=== PATIENT | female | born 1945 | race Caucasian/White ===

== ENCOUNTER 2016-12-29 09:21 | Emergency (ER) | payer MEDICARE, OTHER ==
--- NOTE | 2016-12-29 10:06 | ED ---
Influenza-Like Illness - HPI Summary HPI Summary: Patient presents with one week of cough, congestion and intermittent subjective fevers. She has a history of pneumonia and worries this cold is turning into pneumonia as well. She denies body aches, DANIELS, sore throat, neck pain, ear ache, CP or SOB. Her appetite is intact but she is consuming less. No N/V/D. - History of Current Complaint Hx Obtained From: Patient Onset/Duration: Gradual Onset Severity: Moderate Associated Signs & Symptoms: Cough, Nasal Congestion Related Hx: Possible Flu/Infectious Exposure <Koko Patel - Last Filed: 12/29/16 09:57> <Mathieu West - Last Filed: 12/29/16 11:05> - History of Current Complaint Chief Complaint: EDUpperRespComplaint Time Seen by Provider: 12/29/16 09:33 - Allergy/Home Medications Allergies/Adverse Reactions: Allergies Allergy/AdvReac Type Severity Reaction Status Date / Time Sulfa Antibiotics Allergy Rash Verified 12/29/16 09:31 PMH/Surg Hx/FS Hx/Imm Hx Endocrine/Hematology History: Reports: Hx Diabetes - diet controlled, Hx Thyroid Disease - HYPO Cardiovascular History: Reports: Hx Hypercholesterolemia, Hx Hypertension - ON MEDS Denies: Hx Pacemaker/ICD GI History: Reports: Other GI Disorders - see above Musculoskeletal History: Reports: Hx Arthritis, Hx Rheumatoid Arthritis, Hx Back Problems, Other Musculoskeletal History - ra Denies: Hx Osteoporosis Sensory History: Reports: Hx Contacts or Glasses - GLASSES Denies: Hx Hearing Aid Opthamlomology History: Reports: Hx Contacts or Glasses - GLASSES Neurological History: Reports: Other Neuro Impairments/Disorders - H/O SPONDYLOLITHESIS, LUMBAR STENOSIS, DDD. Psychiatric History: Denies: Hx Panic Disorder - Cancer History Hx Chemotherapy: No Hx Radiation Therapy: No - Surgical History Surgery Procedure, Year, and Place: 2012 DISCECTOMY IN , HERNIA REPAIR 2005, LAPARSCOPIC SURGERY 1981; BILATERAL CATARACTS Hx Anesthesia Reactions: No Infectious Disease History: No Infectious Disease History: Denies: Traveled Outside the [place] in Last 30 Days - Family History Known Family History: Positive: Hypertension - Social History Occupation: Retired Lives: With Family Alcohol Use: None Hx Substance Use: No Substance Use Type: Reports: None Hx Tobacco Use: No Smoking Status (MU): Never Smoked Tobacco Have You Smoked in the Last Year: No <Koko Patel - Last Filed: 12/29/16 09:57> Review of Systems Positive: Fever - subjective, Chills Positive: Nasal Discharge. Negative: Sore Throat, Ear Ache Negative: Chest Pain Positive: Cough. Negative: Shortness Of Breath Negative: Abdominal Pain, Vomiting, Diarrhea, Nausea Negative: Myalgia Negative: Headache All Other Systems Reviewed And Are Negative: Yes <Koko Patel - Last Filed: 12/29/16 09:57> Physical Exam Triage Information Reviewed: Yes Vital Signs On Initial Exam: Initial Vitals Temp Pulse Resp BP Pulse Ox 97.7 F 90 15 157/66 97 12/29/16 09:27 12/29/16 09:27 12/29/16 09:27 12/29/16 09:27 12/29/16 09:27 Vital Signs Reviewed: Yes Appearance: Positive: Well-Appearing, No Pain Distress, Well-Nourished Skin: Positive: Warm, Skin Color Reflects Adequate Perfusion, Dry, Soft Head/Face: Positive: Normal Head/Face Inspection Eyes: Positive: EOMI, ZANDER, Conjunctiva Clear ENT: Positive: Hearing grossly normal, Pharynx normal, Nasal congestion, TMs normal. Negative: Pharyngeal erythema, Tonsillar swelling, Tonsillar exudate Neck: Positive: Supple, Nontender, No Lymphadenopathy Respiratory/Lung Sounds: Positive: Clear to Auscultation, Breath Sounds Present Cardiovascular: Positive: RRR Abdomen Description: Positive: Nontender, Soft. Negative: CVA Tenderness (R), CVA Tenderness (L), Distended, Guarding Bowel Sounds: Positive: Present Musculoskeletal: Negative: Edema Left, Edema Right Neurological: Positive: Sensory/Motor Intact, Alert, Oriented to Person Place, Time, NV Bundle Intact Distally Psychiatric: Positive: Affect/Mood Appropriate AVPU Assessment: Alert - [place] Coma Scale Coma Scale Total: 15 <Koko Patel - Last Filed: 12/29/16 09:57> Vital Signs On Initial Exam: Initial Vitals Temp Pulse Resp BP Pulse Ox 97.7 F 90 15 157/66 97 12/29/16 09:27 12/29/16 09:27 12/29/16 09:27 12/29/16 09:27 12/29/16 09:27 <Mathieu West - Last Filed: 12/29/16 11:05> Diagnostics - Vital Signs Vital Signs Temp Pulse Resp BP Pulse Ox 12/29/16 09:40 98.0 F 90 18 169/77 98 12/29/16 09:39 92 96 12/29/16 09:37 169/77 12/29/16 09:27 97.7 F 90 15 157/66 97 - Radiology No standard instances Xray Interpretation: No Acute Changes Radiology Interpretation Completed By: Radiologist <Koko Patel - Last Filed: 12/29/16 09:57> - Vital Signs Vital Signs Temp Pulse Resp BP Pulse Ox 12/29/16 10:52 98.2 F 80 12 136/70 12/29/16 10:30 81 12 136/70 95 12/29/16 10:22 94 28 157/73 96 12/29/16 10:00 82 13 147/61 94 12/29/16 09:40 98.0 F 90 18 169/77 98 12/29/16 09:39 92 96 12/29/16 09:37 169/77 12/29/16 09:27 97.7 F 90 15 157/66 97 <Mathieu West - Last Filed: 12/29/16 11:05> Flu Symptom Course/Dx - Diagnoses Differential Diagnosis/HQI/PQRI: Positive: Bronchitis, Influenza, Pneumonia, RSV , Upper Respiratory Infection <Koko Patel - Last Filed: 12/29/16 09:57> <Mathieu West - Last Filed: 12/29/16 11:05> - Diagnoses Provider Diagnoses: URI (upper respiratory infection) Discharge <Koko Patel - Last Filed: 12/29/16 09:57> <Mathieu West - Last Filed: 12/29/16 11:05> - Discharge Plan Condition: Stable Disposition: HOME Patient Education Materials: Upper Respiratory Infection (ED) Referrals: Duncan Bridges MD [Primary Care Provider] - Additional Instructions: Please continue to treat your symptoms with over the counter medication. Get plenty of rest and consume extra fluids. Follow-up with your primary care provider for evaluation if your symptoms persist for another 5-7 days. Return to the emergency department if your symptoms worsen.
--- NOTE | 2016-12-29 10:15 | RAD ---
INDICATION: Cough, congestion and fever. COMPARISON: Comparison is made with prior chest x-ray study from June 17, 2016. TECHNIQUE: Dual-energy PA and lateral views of the chest were obtained. FINDINGS: The heart is within normal limits in size. Mediastinal and hilar contours appear within normal limits. There appears to be mitral annular calcification. The lungs are clear. No pleural effusion is present. Postsurgical changes are noted in the lower cervical spine. IMPRESSION: NO EVIDENCE FOR ACTIVE CARDIOPULMONARY DISEASE.
[2016-12-29 10:47] VITALS: BP 136/70
== END 2016-12-29 10:52 | disposition home or self-care (01) ==
LOC: ED 09:21
DX: J06.9 Acute upper respiratory infection, unspecified (principal); R05 Cough; R50.9 Fever, unspecified
CPT/HCPCS: 71020; 99282

== ENCOUNTER 2017-05-08 08:33 | Emergency (ER) | payer MEDICARE ==
--- NOTE | 2017-05-08 08:36 | UC ---
Bite Injury/Animal HPI - HPI Summary HPI Summary: 72 YEAR OLD PRESENTS WITH COMPLAINS OF TICK BITE. - History of Current Complaint Stated Complaint: BUG BITE Time Seen by Provider: 05/08/17 08:36 - Allergies/Home Medications Allergies/Adverse Reactions: Allergies Allergy/AdvReac Type Severity Reaction Status Date / Time Sulfa Antibiotics Allergy Rash Verified 12/29/16 09:31 PMH/Surg Hx/FS Hx/Imm Hx - Surgical History Surgical History: Yes Surgery Procedure, Year, and Place: 2011 DISCECTOMY IN [facility], HERNIA REPAIR 2005, LAPARSCOPIC SURGERY 1981; BILATERAL CATARACTS - Family History Known Family History: Positive: Hypertension - Social History Alcohol Use: None Substance Use Type: None Smoking Status (MU): Never Smoked Tobacco Have You Smoked in the Last Year: No Review of Systems Constitutional: Negative Skin: Rash, Other - TICK BITE Eyes: Negative ENT: Negative Respiratory: Negative Cardiovascular: Negative Gastrointestinal: Negative Genitourinary: Negative Motor: Negative Neurovascular: Negative Musculoskeletal: Negative Neurological: Negative Psychological: Negative All Other Systems Reviewed And Are Negative: Yes Physical Exam Triage Information Reviewed: Yes Eye Exam: Normal ENT Exam: Normal Dental Exam: Normal Neck exam: Normal Neck: Positive: 1 Respiratory Exam: Normal Cardiovascular Exam: Normal Abdominal Exam: Normal Musculoskeletal Exam: Normal Neurological Exam: Normal Psychological Exam: Normal Skin: Positive: rashes, Other - TICK BITE Bite Injury Course/Dx - Differential Dx/Diagnosis Provider Diagnoses: TICK BITE. RASH Discharge - Discharge Plan Condition: Stable Disposition: HOME Prescriptions: DOXYcycline CAP(*) [DOXYcycline 100MG CAP(*)] 100 mg PO BID #56 cap Patient Education Materials: Insect Bite or Sting (ED), Tick Bite (ED) Referrals: Duncan Bridges MD [Primary Care Provider] - If Needed
== END 2017-05-08 08:50 | disposition home or self-care (01) ==
LOC: UCEAST 08:33
DX: S70.362A Insect bite (nonvenomous), left thigh, initial encounter (principal); R21 Rash and other nonspecific skin eruption; W57.XXXA Bitten or stung by nonvenomous insect and other nonvenomous arthropods, initial encounter; Y93.9 Activity, unspecified; Y92.9 Unspecified place or not applicable; Z88.2 Allergy status to sulfonamides
CPT/HCPCS: 86617; 86618; 99212; G0463

== ENCOUNTER 2017-07-19 19:49 | Emergency (ER) | payer MEDICARE ==
[2017-07-19 20:21] VITALS: BP 174/75
--- NOTE | 2017-07-19 21:18 | UC ---
Complaint Female HPI - HPI Summary HPI Summary: 2 DAYS OF DYSURIA, URINARY FREQUENCY AND URGENCY. NO FEVER, NAUSEA OR BACK PAIN. - History Of Current Complaint Chief Complaint: UCGU Stated Complaint: UTI Time Seen by Provider: 07/19/17 21:05 Hx Obtained From: Patient Onset/Duration: Gradual Onset, Lasting Days, Still Present Severity Initially: Moderate Severity Currently: None Pain Intensity: 0 Pain Scale Used: 0-10 Numeric Character: Burning Aggravating Factor(s): Urination Associated Signs And Symptoms: Negative: Fever, Back Pain, Vaginal Bleeding/ Discharge, Vaginal Discharge, Nausea, Vomiting(# Of Episodes =) - Allergies/Home Medications Allergies/Adverse Reactions: Allergies Allergy/AdvReac Type Severity Reaction Status Date / Time Sulfa Antibiotics Allergy Rash Verified 07/19/17 20:20 Home Medications: Home Medications Calcium-Magnesium W/ Vitamin D [Calcium 500 500-250-200 mg-mg-Unit] 1 cap PO DAILY 07/19/17 [History Confirmed 07/19/17] Losartan Potassium 1 cap PO DAILY 07/19/17 [History Confirmed 07/19/17] Oxybutynin TAB* [Ditropan TAB*] 1 cap PO DAILY 07/19/17 [History Confirmed 07/19] PMH/Surg Hx/FS Hx/Imm Hx Endocrine History: Diabetes Cardiovascular History: Hypertension - Surgical History Surgical History: Yes Surgery Procedure, Year, and Place: 2011 DISCECTOMY IN [facility], HERNIA REPAIR 2005, LAPARSCOPIC SURGERY ENDOMETRIAL 1981; BILATERAL CATARACTS. LUMBAR SPINAL FUSION 2014 - Family History Known Family History: Positive: Hypertension - Social History Alcohol Use: None Substance Use Type: None Smoking Status (MU): Never Smoked Tobacco Have You Smoked in the Last Year: No Review of Systems Constitutional: Negative Respiratory: Negative Cardiovascular: Negative Gastrointestinal: Negative Genitourinary: Dysuria, Frequency, Urgency All Other Systems Reviewed And Are Negative: Yes Physical Exam Triage Information Reviewed: Yes Appearance: Well-Appearing, No Pain Distress, Well-Nourished Vital Signs: Initial Vital Signs Temp 96.7 F 07/19/17 20:18 Pulse 68 07/19/17 20:18 Resp 18 07/19/17 20:18 BP 174/75 07/19/17 20:18 Pulse Ox 100 07/19/17 20:18 Vital Signs Reviewed: Yes Eyes: Positive: Conjunctiva Clear ENT: Positive: Hearing grossly normal Neck: Positive: Supple Respiratory: Positive: No respiratory distress, No accessory muscle use Cardiovascular: Positive: Pulses Normal Abdomen Description: Positive: Nontender, Soft. Negative: CVA Tenderness (R), CVA Tenderness (L), Distended, Guarding Musculoskeletal: Positive: No Edema Neurological: Positive: Alert Psychological: Positive: Age Appropriate Behavior Skin: Negative: rashes Diagnostics - Laboratory Diagnostic Studies Completed/Ordered: URINE DIP SP. GR. 1.020, 2+ LEUKS, TRACE BLOOD Complaint Female Dx - Course Course Of Treatment: DISCUSSED BLACK BOX WARNING WITH FLUOROQUINOLONES. PT STATES SHE USUALLY TAKES CIPRO FOR UTI SX AND IT WORKS. IS LEAVING FOR [place] IN 2 DAYS AND DOES NOT WANT TO RISK TAKING A NEW ANTIBIOTIC. WILL GIVE CIPRO. - Differential Dx/Diagnosis Provider Diagnoses: UTI Discharge - Discharge Plan Condition: Stable Disposition: HOME Prescriptions: Ciprofloxacin TAB* [Cipro 500 MG TAB*] 500 mg PO BID #19 tab Patient Education Materials: Urinary Tract Infection in Women (ED) Referrals: Shae Gipson MD [Primary Care Provider] - If Needed Additional Instructions: TAKE CIPRO FOR 5 DAYS. IF SYMPTOMS RESOLVE NO NEED TO TAKE FOR FULL 10 DAYS. STAY WELL HYDRATED. URINE SENT FOR CULTURE TO CONFIRM APPROPRIATE TREATMENT.
[2017-07-19] MEDS ORDERED: Ciprofloxacin TAB* 500 MG PO ONE (21:19)
== END 2017-07-19 21:27 | disposition home or self-care (01) ==
LOC: UCEAST 19:49
DX: N39.0 Urinary tract infection, site not specified (principal); E11.9 Type 2 diabetes mellitus without complications; I10 Essential (primary) hypertension; Z88.2 Allergy status to sulfonamides
CPT/HCPCS: 81003; 87086; 99212; A9270-GY; G0463

== ENCOUNTER 2022-04-18 06:01 | Inpatient (IN) ==
[2022-04-18] MEDS ORDERED: Lactated Ringers 1000 ml BAG 1,000 ML IV ONE ×2 (06:30→10:04)
[2022-04-18 06:47] LABS: ABS Lymphocytes 0.8 10^3/ul (1.0-4.8); ABS Monocytes 0.7 10^3/ul (0-0.8); ABS Neutrophils 9.7 10^3/ul (1.5-7.7); Eosinophil % 0.1 %; Hematocrit 39 % (35-47); Hemoglobin 13.2 g/dL (12.0-16.0); Lymphocyte % 7.3 %; Mean Corpuscular HGB Conc 34 g/dL (31-36); Mean Corpuscular Hemoglobin 30 pg (27-31); Mean Corpuscular Volume 87 fL (80-97); Mean Platelet Volume 11.6 fL (7.4-10.4); Platelet Count 184 10^3/uL (150-450); Red Blood Count 4.46 10^6 /uL (3.70-4.87); Red Cell Distribution Width 14 % (10-15); White Blood Count 11.3 10^3/uL (3.5-10.8)
[2022-04-18 07:47] LABS: ALT 19 U/L (7-52); Albumin 3.7 g/dL (3.2-5.2); Albumin/Globulin Ratio 1.5 (1-3); Alkaline Phosphatase 100 U/L (35-149); Blood Urea Nitrogen 16 mg/dL (6-24); CO2 Carbon Dioxide 19 mmol/L (22-32); Calcium 9.2 mg/dL (8.6-10.3); Chloride 104 mmol/L (101-111); Globulin 2.5 g/dL (2-4); Glucose 135 mg/dL (70-100); Sodium 137 mmol/L (135-145); Total Protein 6.2 g/dL (6.4-8.9); eGFR CKD-EPI 67.1 (>60)
[2022-04-18 07:54] LABS: Anion Gap 14 mmol/L (2-11)
[2022-04-18 08:23] LABS: Urine Appearance Clear; Urine Color Yellow
[2022-04-18 08:24] LABS: Urine Specific Gravity 1.026 (1.002-1.030)
[2022-04-18 08:25] LABS: Urine Bilirubin Negative (Negative); Urine Blood 1+ (Small) (Negative); Urine Glucose Negative (Negative); Urine Ketones 3+ (80mg/dL) (Negative); Urine Nitrite Negative (Negative); Urine Protein Negative (Negative); Urine Urobilinogen 0.2 (Negative) (Negative)
[2022-04-18 08:35] LABS: Urine Bacteria 1+ (Absent); Urine Red Blood Cell 1+(3-5/hpf) (Absent); Urine Squamous Epithelial Cell Present (Absent); Urine White Blood Cell 1+(6-10/hpf) (Absent)
[2022-04-18 09:09] LABS: AST Redraw 19 U/L (13-39); Magnesium 1.4 mg/dL (1.9-2.7); Potassium Redraw 3.5 mmol/L (3.5-5.0)
[2022-04-18] MEDS ORDERED: Magnesium Sulfate 2 gm BAG 2 GM/50 ML BAG IVPB ONE (09:11)
[2022-04-18 09:49] LABS: Lipase < 10 U/L (11.0-82.0)
[2022-04-18 14:00] LABS: TSH Ultra Thyroid Stim Horm 0.63 mcIU/mL (0.34-5.60)
[2022-04-18 14:12] LABS: Vitamin B12 > 1450 pg/mL (180-914)
[2022-04-18] MEDS ORDERED: Enoxaparin 40 MG/0.4 ML SYR SUBCUT SCH (15:00)
[2022-04-18] MEDS: Ondansetron 4 mg VIAL 2 MG/ML 2 ml VIAL IV PRN (16:04)
[2022-04-18] MEDS: NS 0.9% 1000 ml BAG 1,000 ML IV SCH (18:13)
[2022-04-18] MEDS ORDERED: Gadoteridol (CONTRAST) 279.3 MG/ML 10 ML IV ONE (21:31)
[2022-04-19 06:19] LABS: ABS Lymphocytes 0.8 10^3/ul (1.0-4.8); ABS Monocytes 0.5 10^3/ul (0-0.8); Hematocrit 40 % (35-47); Hemoglobin 13.2 g/dL (12.0-16.0); Lymphocyte % 7.3 %; Mean Corpuscular HGB Conc 33 g/dL (31-36); Mean Corpuscular Hemoglobin 29 pg (27-31); Mean Corpuscular Volume 88 fL (80-97); Mean Platelet Volume 11.6 fL (7.4-10.4); Platelet Count 142 10^3/uL (150-450); Red Blood Count 4.51 10^6 /uL (3.70-4.87); Red Cell Distribution Width 14 % (10-15); White Blood Count 10.4 10^3/uL (3.5-10.8)
[2022-04-19 06:53] LABS: Calcium 8.4 mg/dL (8.6-10.3); Magnesium 1.6 mg/dL (1.9-2.7); Potassium 3.4 mmol/L (3.5-5.0); eGFR CKD-EPI 68.1 (>60)
[2022-04-19] MEDS: Aspirin EC 81 mg TAB.EC (enteric coated) PO SCH (08:15)
[2022-04-19] MEDS: Cholecalciferol (VIT D3) 1,000 unit TAB PO SCH (08:18)
[2022-04-19] MEDS: Ondansetron 4 mg VIAL 2 MG/ML 2 ml VIAL IV PRN (09:26)
[2022-04-19] MEDS: NS 0.9% 1000 ml BAG 1,000 ML IV SCH (09:27)
[2022-04-19] MEDS ORDERED: Magnesium Sulfate IV 3 GM in NS 0.9% 100 ml BAG 100 ML IVPB ONE (11:00)
[2022-04-19] MEDS ORDERED: Potassium Chlor 20 meq TAB.ER PO SCH (11:00)
[2022-04-19] MEDS ORDERED: Magnesium Sulfate 1 GM IV 1 GM/100 ML BAG IV ONE (12:00)
[2022-04-19] MEDS ORDERED: Magnesium Sulfate 2 GM IV (Premix) IVPB ONE (12:00)
[2022-04-19 12:05] LABS: Activated Partial Thrombo Time 28.6 seconds (26.0-38.0); INR 1.17 (0.86-1.15)
[2022-04-19 12:11] LABS: Thyroid Peroxidase Antibodies 49.52 IU/mL (<9)
[2022-04-19] MEDS ORDERED: Ondansetron ODT 4 mg TAB 4 MG TAB SL PRN (14:40)
[2022-04-19] MEDS ORDERED: Ondansetron ODT 4 mg TAB 4 MG TAB ONE (14:41)
[2022-04-19] MEDS ORDERED: Buffered Lidocaine 1% SYRIN 1 ml INTRADERM ONE (14:48)
[2022-04-19] MEDS ORDERED: Lidocaine 2% PF 5 ML VIAL ONE (14:48)
[2022-04-19 15:43] LABS: Body Fluid Source Cerebral Spinal
[2022-04-19 15:56] LABS: CSF Glucose 82 mg/dL (40-70)
[2022-04-19 16:17] LABS: Body Fluid Appearance Clear; Body Fluid Color Colorless; CSF Tube # 4
[2022-04-19] MEDS: KCL 20 MEQ/100 ML IVPREMIX 20 MEQ/100 ML BAG IV SCH ×2 (16:43→19:14)
[2022-04-19 17:16] LABS: Body Fluid WBC 0 /mcL
[2022-04-19 18:11] LABS: Body Fluid Other Cells 3; Body Fluid Total Cells Counted 1
[2022-04-19] MEDS ORDERED: KCL 20 MEQ/100 ML IVPREMIX 20 MEQ/100 ML BAG ONE (19:11)
[2022-04-20 07:37] LABS: ABS Eosinophils 0.1 10^3/ul (0-0.6); ABS Lymphocytes 0.9 10^3/ul (1.0-4.8); ABS Monocytes 0.7 10^3/ul (0-0.8); ABS Neutrophils 5.3 10^3/ul (1.5-7.7); Hematocrit 35 % (35-47); Hemoglobin 11.6 g/dL (12.0-16.0); Lymphocyte % 12.8 %; Mean Corpuscular HGB Conc 33 g/dL (31-36); Mean Corpuscular Hemoglobin 29 pg (27-31); Mean Corpuscular Volume 88 fL (80-97); Mean Platelet Volume 10.8 fL (7.4-10.4); Platelet Count 133 10^3/uL (150-450); Red Blood Count 3.99 10^6 /uL (3.70-4.87); Red Cell Distribution Width 14 % (10-15); White Blood Count 6.9 10^3/uL (3.5-10.8)
[2022-04-20 08:40] LABS: Calcium 8.3 mg/dL (8.6-10.3); Potassium 3.8 mmol/L (3.5-5.0); eGFR CKD-EPI 46.4 (>60)
[2022-04-20] MEDS: Cholecalciferol (VIT D3) 1,000 unit TAB PO SCH (09:22)
[2022-04-20] MEDS: Aspirin EC 81 mg TAB.EC (enteric coated) PO SCH (09:22)
[2022-04-20] MEDS ORDERED: NS 0.9% 500 ml BAG 500 ML IV ONE (12:18)
[2022-04-20] MEDS ORDERED: NS 0.9% 1000 ml BAG 1,000 ML IV SCH (12:30)
[2022-04-20] MEDS ORDERED: AZITHROMYCIN 500 MG TAB PO SCH (18:00)
[2022-04-21] MEDS: Cholecalciferol (VIT D3) 1,000 unit TAB PO SCH (09:38)
[2022-04-21] MEDS: Aspirin EC 81 mg TAB.EC (enteric coated) PO SCH (09:39)
[2022-04-21 10:14] LABS: Calcium 8.6 mg/dL (8.6-10.3); Potassium 3.6 mmol/L (3.5-5.0); eGFR CKD-EPI 58.4 (>60)
[2022-04-21 13:11] VITALS: BP 137/70
[2022-04-22 00:47] LABS: HSV 1 PCR, CSF Negative (Negative); HSV 2 PCR, CSF Negative (Negative)
[2022-04-22 18:24] LABS: B. garinii/B. afzellii PCR Negative (Negative); Lyme Disease Source CSF
[2022-04-25 13:04] LABS: Lyme CNS IgG Ab Index Interp Negative; Lyme CNS IgG Ab Index Value 0.8 (0.6 - 1.2)
[2022-04-25 22:20] LABS: CSF Angiotension Conv Enz 1.6 U/L (0.0-2.5)
== END 2022-04-21 13:00 | disposition home or self-care (01) | DRG 372 ==
LOC: EDHOLD 06:01 → ED 06:01 → MEDTELE 15:57
PROVIDERS: ADMIT Hospitalist; ATTEND Hospitalist

== ENCOUNTER 2024-08-14 07:27 | Observation (INO) ==
[~2024-08-14 07:27] MED LIST: Naloxone 0.4 mg VIAL 0.4 mg/ml 1 ml VIAL IV PRN; Ondansetron 4 mg VIAL 2 MG/ML 2 ml VIAL IV PRN
[2024-08-14] MEDS ORDERED: Propofol 10 mg/ml 100 ML BTL 1,000 MG/100 ML BTL ONE (07:52)
[2024-08-14] MEDS ORDERED: Bupivacaine 0.5% PF 10 ML SDV VIAL INJ ONE (07:55)
[2024-08-14] MEDS ORDERED: Phenylephrine IV 10 MG/ML 1 ml VIAL ONE (07:55)
[2024-08-14] MEDS ORDERED: fentaNYL 100 mcg/2 ml 50 MCG/ML VIAL ONE ×4 (07:55→13:38)
[2024-08-14] MEDS ORDERED: Dexamethasone IV 4 MG/ML VIAL 1 ml VIAL ONE ×2 (07:55→08:39)
[2024-08-14] MEDS ORDERED: Midazolam 2 mg/2 ml VIAL 1 mg/ml 2 ml VIAL (2 mg) ONE ×2 (07:55→08:39)
[2024-08-14] MEDS ORDERED: Ondansetron 4 mg VIAL 2 MG/ML 2 ml VIAL ONE (07:55)
[2024-08-14] MEDS ORDERED: Lidocaine 2% PF 5 ML VIAL ONE (07:55)
[2024-08-14 08:03] LABS: Rapid COVID-19 Molecular Undetected (Undetected)
[2024-08-14] MEDS ORDERED: Tranexamic Acid 1 GM/100ML BAG 2,000 MG/200 ML BAG IV ONE (08:31)
[2024-08-14] MEDS ORDERED: ceFAZolin 2 GM PREMIX 2 GM/50 ML BAG ONE (08:31)
[2024-08-14] MEDS ORDERED: ROPIVACAINE 5 MG/ML 30 ML BTL (0.5%) ONE ×2 (08:34→08:39)
[2024-08-14] MEDS ORDERED: Rocuronium 50 mg VIAL 10 mg/ml 5 ml VIAL (50 mg) ONE (08:56)
[2024-08-14] MEDS ORDERED: HYDROmorphone 0.5 MG/0.5 ML SYRINGE ONE (11:26)
[2024-08-14] MEDS ORDERED: Morphine 2 MG/ML SYRINGE IV PRN (12:29)
[2024-08-14] MEDS ORDERED: Magnesium Hydroxide LIQ 30 ML UDC PO PRN (12:29)
[2024-08-14] MEDS ORDERED: Calcium Carb (TUMS) 500 mg CHEW TAB PO PRN (12:29)
[2024-08-14] MEDS ORDERED: Ondansetron ODT 4 mg TAB 4 MG TAB PO PRN (12:29)
[2024-08-14] MEDS ORDERED: Ondansetron 4 mg VIAL 2 MG/ML 2 ml VIAL IV PRN (12:29)
[2024-08-14] MEDS ORDERED: Lactulose 30 ml UDC PO PRN (12:29)
[2024-08-14] MEDS: fentaNYL 100 mcg/2 ml 50 MCG/ML VIAL IV PRN (13:16)
[2024-08-14] MEDS: Buffered Lidocaine 1% SYRIN 1 ml INTRADERM ONE (16:09)
[2024-08-14] MEDS: Lactated Ringers 1000 ml BAG 1,000 ML IV SCH ×2 (16:09→16:10)
[2024-08-14] MEDS: ceFAZolin 2 GM PREMIX 2 GM/50 ML BAG IV SCH (18:11)
[2024-08-14] MEDS: Magnesium Hydroxide LIQ 30 ML UDC PO SCH (19:50)
[2024-08-15 06:26] LABS: Hematocrit 33.8 % (35-45); Hemoglobin 11.2 g/dL (11.5-14.3); Mean Platelet Volume 11.1 fL (7.5-11.2); Platelet Count 201 10^3/uL (150-450)
[2024-08-15 06:41] LABS: Calcium 8.7 mg/dL (8.6-10.3); Creatinine, Serum 0.86 mg/dL (0.51-0.95); Potassium 4.4 mmol/L (3.5-5.0); eGFR CKD-EPI 69.1 (>60)
[2024-08-15] MEDS: Cholecalciferol (VIT D3) 1,000 unit TAB PO SCH (09:32)
[2024-08-15] MEDS: Vitamin THERAPEUTIC TAB PO SCH (09:34)
[2024-08-15 11:09] VITALS: BP 124/57
== END 2024-08-15 12:00 | disposition home or self-care (01) ==
LOC: OR 07:27 → SSU 07:27
PROVIDERS: ADMIT Orthopaedic Surgery Adult Reconstructive Orthopaedic Surgery; ATTEND Orthopaedic Surgery Adult Reconstructive Orthopaedic Surgery

== ENCOUNTER 2024-08-25 05:15 | Observation (INO) ==
[2024-08-25] MEDS ORDERED: Iodixanol 320 (CONTRAST) 500 ML MDV IV ONE (05:35)
[2024-08-25 06:06] LABS: ABS Basophils 0.1 10^3/uL (0.0-0.1); ABS Eosinophils 0.1 10^3/uL (0.0-0.5); ABS Lymphocytes 0.8 10^3/uL (1.0-4.8); ABS Monocytes 0.5 10^3/uL (0.0-0.9); ABS Neutrophils 7.2 10^3/uL (1.5-7.6); ABS Nucleated RBC 0.01 10^3/ul; Eosinophil % 1.2 %; Hematocrit 33.5 % (35-45); Hemoglobin 11.5 g/dL (11.5-14.3); Lymphocyte % 8.9 %; Mean Corpuscular Hemoglobin 29.5 pg (27-33); Mean Corpuscular Hgb Conc 34.4 g/dL (31-36); Mean Corpuscular Volume 85.8 fL (80-97); Mean Platelet Volume 9.6 fL (7.5-11.2); Nucleated Red Blood Cells % 0.1 %/100WBC (0.0-0.8); Platelet Count 391 10^3/uL (150-450); Red Blood Count 3.91 10^6/uL (3.63-4.92); White Blood Count 8.6 10^3/uL (3.8-11.8)
[2024-08-25 06:08] LABS: Urine Appearance Clear; Urine Bilirubin Negative (Negative); Urine Blood Negative (Negative); Urine Color Colorless; Urine Glucose Negative (Negative); Urine Ketones 2+ (Negative); Urine Nitrite Negative (Negative); Urine Protein Negative (Negative); Urine Specific Gravity 1.025 (1.002-1.030); Urine Urobilinogen Negative (Negative); Urine pH 5.5 (5.0-8.0)
[2024-08-25 06:16] LABS: Activated Partial Thrombo Time 30.8 seconds (26.0-38.0); INR 1.38 (0.85-1.14)
[2024-08-25 06:16] LABS: Urine Bacteria Absent /HPF (Absent); Urine Red Blood Cell Trace(0-2/hpf) /HPF (0-Trace); Urine Squamous Epithelial Cell Present /HPF (Absent); Urine White Blood Cell Trace(0-5/hpf) /HPF (0-Trace)
[2024-08-25] MEDS: Lactated Ringers 1000 ml BAG 1,000 ML IV ONE (06:18)
[2024-08-25] MEDS: Ondansetron 4 mg VIAL 2 MG/ML 2 ml VIAL IV ONE (06:22)
[2024-08-25 06:45] LABS: ALT 10 U/L (7-52); Albumin 3.2 g/dL (3.2-5.2); Albumin/Globulin Ratio 1.1 (1-3); Alkaline Phosphatase 102 U/L (35-149); Blood Urea Nitrogen 13 mg/dL (6-24); CO2 Carbon Dioxide 22 mmol/L (22-32); Calcium 8.7 mg/dL (8.6-10.3); Chloride 98 mmol/L (101-111); Cholesterol 143 mg/dL; Creatinine, Serum 0.71 mg/dL (0.51-0.95); Globulin 2.8 g/dL (2-4); Glucose 143 mg/dL (70-100); HDL Cholesterol 33.9 mg/dL; LDL Cholesterol 80 mg/dL; Sodium 132 mmol/L (135-145); Total Bilirubin 0.5 mg/dL (0.2-1.0); Triglycerides 146 mg/dL
[2024-08-25 07:16] LABS: Anion Gap 12 mmol/L (2-16)
[2024-08-25] MEDS ORDERED: Sulfur Hexaflouride MICROSPHR 25 MG VIAL IV PRN (07:49)
[2024-08-25] MEDS ORDERED: Dextrose 50% Syringe 50 ml 25 GM/50 ML SYRINGE IV PUSH PRN (07:59)
[2024-08-25 08:06] LABS: Direct Bilirubin Redraw 0.1 mg/dL (0.1-0.5); Potassium Redraw 3.9 mmol/L (3.5-5.0)
[2024-08-25] MEDS ORDERED: Ondansetron 4 mg VIAL 2 MG/ML 2 ml VIAL IV PRN (10:18)
[2024-08-25] MEDS ORDERED: Polyethylene Glycol 3350 17 GM PACKET PO PRN (11:01)
[2024-08-25] MEDS: NS 0.9% 1000 ml BAG 1,000 ML IV SCH (12:24)
[2024-08-25 13:27] LABS: Magnesium 1.6 mg/dL (1.9-2.7)
[2024-08-26 05:54] LABS: ABS Basophils 0.1 10^3/uL (0.0-0.1); ABS Eosinophils 0.5 10^3/uL (0.0-0.5); ABS Lymphocytes 1.2 10^3/uL (1.0-4.8); ABS Monocytes 0.7 10^3/uL (0.0-0.9); ABS Neutrophils 5.3 10^3/uL (1.5-7.6); Eosinophil % 6.1 %; Hematocrit 30.9 % (35-45); Hemoglobin 10.2 g/dL (11.5-14.3); Lymphocyte % 15.6 %; Mean Corpuscular Hemoglobin 28.7 pg (27-33); Mean Corpuscular Volume 87.1 fL (80-97); Mean Platelet Volume 9.4 fL (7.5-11.2); Platelet Count 366 10^3/uL (150-450); Red Blood Count 3.55 10^6/uL (3.63-4.92); Red Cell Distribution Width 14.1 % (12-17); White Blood Count 7.7 10^3/uL (3.8-11.8)
[2024-08-26 06:14] LABS: Calcium 8.6 mg/dL (8.6-10.3); Creatinine, Serum 0.8 mg/dL (0.51-0.95); Potassium 4.2 mmol/L (3.5-5.0); eGFR CKD-EPI 75.4 (>60)
[2024-08-26 09:34] VITALS: BP 136/55
[2024-08-26 09:42] LABS: Magnesium 1.7 mg/dL (1.9-2.7)
== END 2024-08-26 11:20 | disposition home or self-care (01) ==
LOC: ED 05:15 → EDHOLD 05:15 → MED 07:49
PROVIDERS: ADMIT Internal Medicine; ATTEND Internal Medicine